=== PATIENT | female | born 1935 | race Caucasian/White ===

== ENCOUNTER 2019-07-05 20:52 | Inpatient (IN) ==
[2019-07-05 22:00] LABS: Basophils % 0.2 % (0.0-0.8); Eosinophils # 0.2 10*3/uL (0.0-0.87); Eosinophils % 2.1 % (0.00-10.9); Hematocrit 33.9 VOL% (35.7-47.0); Hemoglobin 10.3 GM/DL (12.0-16.0); Immature Granulocytes % 0.5 %; Immature Granulocytes Absolute 0.04 #; Lymphocytes # 0.2 10*3/uL (1.4-4.0); Lymphocytes % 2.3 % (21.3-54.2); Mean Corpuscular HGB Conc 30.4 GM/DL (32-36); Mean Platelet Volume 10.3 FL (9.6-12.0); Monocytes % 4.4 % (1.7-12.7); Neutrophils % 90.5 % (38.7-73.9); Platelet Count 314 T/CUMM (130-400); Red Blood Count 3.46 MC/CUMM (3.8-5.5); Red Cell Distribution Width 14.6 % (9.3-17.3); White Blood Count 8.8 T/CUMM (4-12)
[2019-07-05 22:24] LABS: Band Neutrophils 2 % (0-10); Eosinophils 4 % (0-10); Lymphocytes 2 % (20-55); Platelet Estimate Normal; Segmented Neutrophils 88 % (50-85); Total Cells Counted 100
[2019-07-05 22:25] LABS: Hypochromasia Slight
[2019-07-05] MEDS: MORPHINE 4 MG/1 ML VIAL IV SCH (23:03)
[2019-07-06] MEDS: DEXTROSE 5% NACL 0.45% 1,000 ML IV SCH ×4 (00:28→21:22)
[2019-07-06] MEDS: PIPERACILLIN/TAZOBACTAM 3,375 MG in SODIUM CHLORIDE 0.9% 100 ML IV SCH ×3 (00:29→14:10)
[2019-07-06] MEDS: MORPHINE 4 MG/1 ML VIAL IV SCH ×6 (02:36→21:22)
[2019-07-06] MEDS ORDERED: PHENOL 1.4% THROAT SPRAY 177 ML BOTTLE PO PRN (09:20)
[2019-07-06] MEDS: FAMOTIDINE 20 MG/2 ML VIAL IV SCH ×2 (09:53→21:22)
[2019-07-06] MEDS ORDERED: hydrALAZINE 20 MG/1 ML VIAL IV PRN (11:22)
[2019-07-06] MEDS ORDERED: ALBUTEROL/IPRATROPIUM 3 ML NEB RESP TX PRN (12:54)
[2019-07-06] MEDS: NICOTINE 21 MG/24 HR PATCH TRANSDERM SCH (14:02)
[2019-07-06] MEDS: carBAMazepine 200 MG TABLET PO SCH ×2 (14:02→21:22)
[2019-07-06] MEDS: DIAZEPAM 10 MG/2 ML SYRINGE IV PRN (15:19)
[2019-07-06] MEDS ORDERED: carBAMazepine CHEW 100 MG TABLET PO SCH (21:00)
[2019-07-06] MEDS ORDERED: MIRTAZAPINE 30 MG TABLET PO SCH (21:00)
[2019-07-06] MEDS: BUDESONIDE/FORMOTEROL 160-4.5 INHALER 6 GM INH SCH (21:21)
[2019-07-06] MEDS: DONEPEZIL 10 MG TABLET PO SCH (21:22)
[2019-07-07] MEDS: PIPERACILLIN/TAZOBACTAM 3,375 MG in SODIUM CHLORIDE 0.9% 100 ML IV SCH ×3 (01:25→17:35)
[2019-07-07] MEDS: MORPHINE 4 MG/1 ML VIAL IV SCH ×6 (02:24→22:02)
[2019-07-07 05:49] LABS: Basophils % 0.4 % (0.0-0.8); Eosinophils # 0.3 10*3/uL (0.0-0.87); Eosinophils % 3.6 % (0.00-10.9); Hematocrit 31.2 VOL% (35.7-47.0); Hemoglobin 9.7 GM/DL (12.0-16.0); Immature Granulocytes % 0.3 %; Immature Granulocytes Absolute 0.02 #; Lymphocytes % 14.6 % (21.3-54.2); Mean Corpuscular HGB Conc 31.1 GM/DL (32-36); Mean Corpuscular Volume 98.7 FL (87-102); Mean Platelet Volume 10.9 FL (9.6-12.0); Monocytes % 10.6 % (1.7-12.7); Neutrophils % 70.5 % (38.7-73.9); Platelet Count 306 T/CUMM (130-400); Red Blood Count 3.16 MC/CUMM (3.8-5.5); Red Cell Distribution Width 14.6 % (9.3-17.3)
[2019-07-07 06:06] LABS: Calcium 8.2 MG/DL (8.5-10.1); Osmolality,Calculated 292.4 MOS/KG (273-304)
[2019-07-07] MEDS: DEXTROSE 5% NACL 0.45% 1,000 ML IV SCH ×3 (06:09→22:19)
[2019-07-07] MEDS: NICOTINE 21 MG/24 HR PATCH TRANSDERM SCH (09:01)
[2019-07-07] MEDS: VENLAFAXINE XR 75 MG CAPSULE PO SCH (09:01)
[2019-07-07] MEDS: amLODIPine 10 MG TABLET PO SCH (09:01)
[2019-07-07] MEDS: carBAMazepine 200 MG TABLET PO SCH ×2 (09:01→22:00)
[2019-07-07] MEDS: FAMOTIDINE 20 MG/2 ML VIAL IV SCH ×2 (09:01→21:57)
[2019-07-07] MEDS: BUDESONIDE/FORMOTEROL 160-4.5 INHALER 6 GM INH SCH ×2 (09:15→22:01)
[2019-07-07] MEDS: ONDANSETRON 4 MG/2 ML VIAL IV PRN ×2 (09:18→15:50)
[2019-07-07] MEDS: DIAZEPAM 10 MG/2 ML SYRINGE IV PRN (15:14)
[2019-07-08] MEDS: PIPERACILLIN/TAZOBACTAM 3,375 MG in SODIUM CHLORIDE 0.9% 100 ML IV SCH ×3 (01:46→17:55)
[2019-07-08] MEDS: MORPHINE 4 MG/1 ML VIAL IV SCH ×7 (01:47→21:05)
[2019-07-08] MEDS: VENLAFAXINE XR 75 MG CAPSULE PO SCH (10:20)
[2019-07-08] MEDS: NICOTINE 21 MG/24 HR PATCH TRANSDERM SCH (10:22)
[2019-07-08] MEDS: DEXTROSE 5% NACL 0.45% 1,000 ML IV SCH ×3 (10:23→22:40)
[2019-07-08] MEDS: carBAMazepine 200 MG TABLET PO SCH ×2 (10:23→20:31)
[2019-07-08] MEDS: amLODIPine 10 MG TABLET PO SCH (10:23)
[2019-07-08] MEDS: BUDESONIDE/FORMOTEROL 160-4.5 INHALER 6 GM INH SCH ×2 (10:24→20:30)
[2019-07-08] MEDS: FAMOTIDINE 20 MG/2 ML VIAL IV SCH ×2 (10:24→20:31)
[2019-07-08] MEDS: DIAZEPAM 10 MG/2 ML SYRINGE IV PRN ×2 (14:10→22:09)
[2019-07-08] MEDS ORDERED: diphenhydrAMINE CAP 25 MG CAPSULE PO PRN (23:44)
[2019-07-09] MEDS: ACETAMINOPHEN 325 MG TABLET PO PRN ×2 (00:50→12:50)
[2019-07-09] MEDS: ONDANSETRON 4 MG/2 ML VIAL IV PRN (02:15)
[2019-07-09] MEDS: MORPHINE 4 MG/1 ML VIAL IV SCH ×2 (02:15→06:40)
[2019-07-09] MEDS: PIPERACILLIN/TAZOBACTAM 3,375 MG in SODIUM CHLORIDE 0.9% 100 ML IV SCH ×3 (02:19→17:13)
[2019-07-09] MEDS: DEXTROSE 5% NACL 0.45% 1,000 ML IV SCH (06:22)
[2019-07-09 09:01] LABS: Basophils # 0.1 10*3/uL (0.0-0.2); Basophils % 0.7 % (0.0-0.8); Eosinophils # 0.5 10*3/uL (0.0-0.87); Eosinophils % 6.7 % (0.00-10.9); Hematocrit 30.1 VOL% (35.7-47.0); Hemoglobin 9.1 GM/DL (12.0-16.0); Immature Granulocytes % 0.3 %; Immature Granulocytes Absolute 0.02 #; Lymphocytes # 1.1 10*3/uL (1.4-4.0); Lymphocytes % 15.8 % (21.3-54.2); Mean Corpuscular HGB Conc 30.2 GM/DL (32-36); Mean Corpuscular Volume 97.4 FL (87-102); Mean Platelet Volume 10.2 FL (9.6-12.0); Monocytes % 6.1 % (1.7-12.7); Neutrophils % 70.4 % (38.7-73.9); Platelet Count 311 T/CUMM (130-400); Red Blood Count 3.09 MC/CUMM (3.8-5.5); Red Cell Distribution Width 14.4 % (9.3-17.3); White Blood Count 6.7 T/CUMM (4-12)
[2019-07-09 09:37] LABS: Calcium 8.7 MG/DL (8.5-10.1)
[2019-07-09] MEDS: FAMOTIDINE 20 MG/2 ML VIAL IV SCH ×2 (10:23→21:06)
[2019-07-09] MEDS: NICOTINE 21 MG/24 HR PATCH TRANSDERM SCH (10:24)
[2019-07-09] MEDS: clonazePAM 0.5 MG TABLET PO PRN ×3 (10:24→17:13)
[2019-07-09] MEDS: VENLAFAXINE XR 75 MG CAPSULE PO SCH (10:25)
[2019-07-09] MEDS: amLODIPine 10 MG TABLET PO SCH (10:25)
[2019-07-09] MEDS: DOCUSATE SODIUM 100 MG CAPSULE PO SCH ×2 (10:26→21:09)
[2019-07-09] MEDS: LORATADINE 10 MG TABLET PO SCH (10:26)
[2019-07-09] MEDS: ASPIRIN EC 81 MG TABLET PO SCH (10:28)
[2019-07-09] MEDS: carBAMazepine 200 MG TABLET PO SCH ×2 (10:28→21:09)
[2019-07-09] MEDS: BUDESONIDE/FORMOTEROL 160-4.5 INHALER 6 GM INH SCH ×2 (10:42→23:00)
[2019-07-09] MEDS ORDERED: MIRTAZAPINE 30 MG TABLET PO SCH (21:00)
[2019-07-09] MEDS ORDERED: traZODone 50 MG TABLET PO SCH (21:00)
[2019-07-09] MEDS: DONEPEZIL 10 MG TABLET PO SCH (21:09)
[2019-07-10] MEDS: DEXTROSE 5% NACL 0.45% 1,000 ML IV SCH ×2 (00:07→01:06)
[2019-07-10] MEDS: PIPERACILLIN/TAZOBACTAM 3,375 MG in SODIUM CHLORIDE 0.9% 100 ML IV SCH ×2 (01:06→10:05)
[2019-07-10 05:18] LABS: Basophils % 0.8 % (0.0-0.8); Eosinophils # 0.6 10*3/uL (0.0-0.87); Eosinophils % 12.9 % (0.00-10.9); Hematocrit 28.7 VOL% (35.7-47.0); Hemoglobin 8.9 GM/DL (12.0-16.0); Immature Granulocytes % 0.2 %; Immature Granulocytes Absolute 0.01 #; Lymphocytes # 1.2 10*3/uL (1.4-4.0); Mean Corpuscular Volume 96.3 FL (87-102); Mean Platelet Volume 10.5 FL (9.6-12.0); Monocytes % 9.8 % (1.7-12.7); Neutrophils % 51.3 % (38.7-73.9); Platelet Count 314 T/CUMM (130-400); Red Blood Count 2.98 MC/CUMM (3.8-5.5); Red Cell Distribution Width 14.6 % (9.3-17.3); White Blood Count 4.8 T/CUMM (4-12)
[2019-07-10 05:44] LABS: Eosinophils 11 % (0-10); Lymphocytes 23 % (20-55); Segmented Neutrophils 54 % (50-85); Total Cells Counted 100
[2019-07-10 05:45] LABS: Platelet Estimate Normal
[2019-07-10 05:51] LABS: Osmolality,Calculated 291.3 MOS/KG (273-304)
[2019-07-10] MEDS: ASPIRIN EC 81 MG TABLET PO SCH (09:11)
[2019-07-10] MEDS: LORATADINE 10 MG TABLET PO SCH (09:11)
[2019-07-10] MEDS: DOCUSATE SODIUM 100 MG CAPSULE PO SCH (09:12)
[2019-07-10] MEDS: amLODIPine 10 MG TABLET PO SCH (09:13)
[2019-07-10] MEDS: clonazePAM 0.5 MG TABLET PO PRN (09:15)
[2019-07-10] MEDS: carBAMazepine 200 MG TABLET PO SCH (09:15)
[2019-07-10] MEDS: BUDESONIDE/FORMOTEROL 160-4.5 INHALER 6 GM INH SCH (09:25)
[2019-07-10] MEDS: NICOTINE 21 MG/24 HR PATCH TRANSDERM SCH (09:40)
[2019-07-10] MEDS: FAMOTIDINE 20 MG/2 ML VIAL IV SCH (10:05)
[2019-07-10 10:59] VITALS: BP 153/63
== END 2019-07-10 12:25 | disposition hospice, home (50) | DRG 389 ==
LOC: N.ED 20:52 → N.EDINP 21:34 → N.3E 23:12
PROVIDERS: ADMIT Surgery; ATTEND Surgery